=== PATIENT | female | born 1955 | race Caucasian/White ===

== ENCOUNTER → 2019-06-26 08:58 | Outpatient (CLI) | payer OTHER, SELFPAY ==
[2019-06-26 09:58] LABS: Add Manual Diff / Slide Review NO; Basophils Absolute Auto 100 /uL (0-100); Basophils Percent Auto 1.9 % (0-2); Eosinophils Absolute Auto 200 /uL (0-450); Hematocrit 42.1 % (36-46); Hemoglobin 14.7 g/dL (12.0-16.0); Lymphocytes Absolute Auto 1200 /uL (1100-4500); Lymphocytes Percent Auto 32.3 % (25-40); Mean Corpuscular HGB Conc 34.9 % (30-36); Mean Corpuscular Hemoglobin 32.5 PG (26-34); Mean Corpuscular Volume 93.3 fL (80-100); Monocytes Absolute Auto 300 /uL (0-900); Monocytes Percent Auto 9.2 % (3-14); Neutrophils Absolute Auto 1800 /uL (1500-7000); Neutrophils Percent Auto 50.6 % (50-75); Platelet Count 278 X10^3/uL (150-400); Red Blood Cell Count 4.51 X10^6/uL (4.0-5.2); Red Cell Distribution Width 13.8 % (11.6-14.8); White Blood Cell Count 3.6 X10^3/uL (4.5-11.0)
[2019-06-26 10:06] LABS: Alanine Aminotransferase 53 IU/L (<35); Albumin 4.9 g/dL (3.5-5.0); Albumin Globulin Ratio 1.7 (1.0-2.8); Alkaline Phosphatase 107 U/L (38-126); Aspartate Aminotransferase 59 IU/L (14-36); BUN Creatinine Ratio 18.6 (6-22); Bilirubin Total 0.7 mg/dL (0.2-1.3); Blood Urea Nitrogen 13 mg/dL (7-17); Calcium 10.3 mg/dL (8.4-10.2); Carbon Dioxide 29 mmol/L (22-32); Chloride 101 mmol/L (98-107); Cholesterol 227 mg/dL (140-199); Estimated Glomerular Filt Rate > 60.0 mL/min (>60); Globulin 2.9 g/dL (1.7-4.1); Glucose 89 mg/dL (80-110); HEMOLYSIS < 15 (0-50); Potassium 4.2 mmol/L (3.4-5.1); Sodium 138 mmol/L (137-145); Total Protein 7.8 g/dL (6.3-8.2); Triglycerides 54 mg/dL (35-150)
[2019-06-26 10:17] LABS: LDL Cholesterol Calculated 51 mg/dL (<100)
[2019-06-26 10:18] LABS: HDL Cholesterol 165 mg/dL (40-60)
[2019-06-26 10:20] LABS: Vitamin D 25 Hydroxy (D3) 46.5 ng/mL (30.0-100.0)
[2019-06-26 11:11] LABS: TSH w/ Reflex to FT4 3.95 uIU/mL (0.47-4.68)
[2019-07-01 07:55] LABS: ANA Screen, IFA NEGATIVE (NEGATIVE)
== END ==
PROVIDERS: PCP Physician Assistant; Visit Provider Physician Assistant
DX: L65.9 Nonscarring hair loss, unspecified (principal); R03.0 Elevated blood-pressure reading, without diagnosis of hypertension; E78.2 Mixed hyperlipidemia; E55.9 Vitamin D deficiency, unspecified; M35.00 Sjogren syndrome, unspecified; I73.00 Raynaud's syndrome without gangrene; R53.83 Other fatigue
CPT/HCPCS: 36415; 80053; 80061; 82306; 84443; 85025; 86038; 86235

== ENCOUNTER 2020-04-13 16:43 | Emergency (ER) | payer OTHER, SELFPAY ==
[2020-04-13 16:55] VITALS: BP 187/99; PULSE 73; RESP 16; TEMP 36.8; O2SAT 100; BMI 18.8
--- NOTE | 2020-04-13 16:57 | ED.EXTPRO ---
HPI - Extremity Problem <MATTHEW Frias - Last Filed: 04/14/20 00:57> General Chief complaint: Extremity Injury, Upper Stated complaint: Poss lt wrist break Time Seen by Provider: 04/13/20 16:51 Source: patient Mode of arrival: Ambulatory Limitations: no limitations History of Present Illness HPI Narrative: This is a 64 year female, nonsmoker, who presents to ED with significant other with chief complain of dominant hand, left bilateral wrist pain. Patient reports s/p FOOSH during trail run at 1540 today. Patient is able to move fingers and reports intact sensation distally but difficulty with flexion and extension of the wrist and supination and pronation. Patient denies previous injury to affected hand or wrist. Patient denies open skin injuries. He denies hitting her head or injuring other areas. Patient is not on blood thinner. Related Data Previous Rx's Medication Instructions Recorded hydrocodone-acetaminophen [[place]] 1 tab PO TID PRN #10 tab 04/13/20 Allergies Allergy/AdvReac Type Severity Reaction Status Date / Time No Known Allergies Allergy Verified 04/13/20 17:08 Review of Systems <MATTHEW Frias - Last Filed: 04/14/20 00:57> Review of Systems Narrative: General: Denies fever, chills, fatigue, malaise, sweats. HEENT: Denies sinus pain, ear pain, sore throat, difficulty swallowing, dizziness. Respiratory: Denies dyspnea, cough, wheezing, hemoptysis, sputum. Cardiovascular: Denies chest pain, palpitations, orthopnea, edema. Gastrointestinal: Denies nausea, vomiting, abdominal pain, diarrhea, constipation, melena. Musculoskeletal: See HPI Skin: Denies rash, skin lesions, or other. Patient History <MATTHEW Frias - Last Filed: 04/14/20 00:57> Medical History (Updated 04/13/20 @ 18:04 by MATTHEW Frias) No significant past medical history (Acute) Surgical History (Updated 04/13/20 @ 17:00 by MATTHEW Frias) No pertinent past surgical history (Acute) Social History Smoking Status: Never smoker Smoking Status: Never smoker alcohol intake frequency: 0-2 drinks per day Substance Use Type: does not use Exam <MATTHEW Frias - Last Filed: 04/14/20 00:57> Narrative Exam Narrative: General appearance: well developed, well nourished, in no acute distress. Head: normocephalic, atraumatic, no scalp lesions, non-tender. ENT: Hearing grossly intact. Airway patent. Neck/Thyroid: neck supple, full range of motion, no visible masses or meningeal signs. No JVD, non-tender without lymphadenopathy. Skin: no suspicious rashes, lesions over visible areas. Warm and dry and appropriate color for ethnicity. Heart: no clubbing, no cyanosis, no edema. Lungs: Breathing even and unlabored. No stridor. No accessory muscles used. Able to speak in full sentences. Chest: normal shape and expansion. Abdomen: non-obese, non-distended. Neurologic: alert and oriented. Cognitive exam, HAND EMBROIDERER and PNS grossly intact on informal exam. Psych: good eye contact, normal affect. Initial Vital Signs Initial Vital Signs: Vital Signs Temperature 98.2 F 04/13/20 16:55 Pulse Rate 73 04/13/20 16:55 Respiratory Rate 16 04/13/20 16:55 Blood Pressure 187/99 H 04/13/20 16:55 Pulse Oximetry 100 04/13/20 16:55 Extrem Left upper extremity: wrist Details: abnormal to inspection, tenderness Location: of the distal radius and of the distal ulna, swelling (bilateral wrist), abnormal ROM Details: pain with active ROM and pain with passive ROM, normal vascular exam (brisk cap refill) and radial pulse present; no abrasions and no penetrating wound and hand Details: neurosensory exam normal and vascular exam Details: radial pulse present and normal capillary refill; no ecchymosis <Marleny Lockett DO - Last Filed: 04/17/20 07:56> Initial Vital Signs Initial Vital Signs: Vital Signs Temperature 98.2 F 04/13/20 16:55 Pulse Rate 73 04/13/20 16:55 Respiratory Rate 16 04/13/20 16:55 Blood Pressure 187/99 H 04/13/20 16:55 Pulse Oximetry 100 04/13/20 16:55 Procedures <Dung Gonzalez [facility] - Last Filed: 04/14/20 00:57> Orthopedic Splinting/Casting Injury #1: Side: left Upper Extremity Injury Location: wrist Upper Extremity Immobilizer: sling/shoulder immobilizer and sugar tong splint Post splinting neuro exam: intact Post splinting vascular exam: intact Placed by: Nursing Scores <MATTHEW Frias - Last Filed: 04/14/20 00:57> GCS [place] coma scale eye opening: Spontaneous Sunny coma scale verbal response: Orientated Sunny coma scale motor response: Obey commands Sunny coma scale total score: 15 Course <MATTHEW Frias - Last Filed: 04/14/20 00:57> Orders Ordered: Discontinued Medications Acetaminophen (Tylenol) 325 mg PO NOW ONE Stop: 04/13/20 16:57 Last Admin: 04/13/20 17:19 Dose: 325 mg Documented by: PHILIP Hydrocodone Bitart/Acetaminophen ([place] 5/325) 1 tab PO NOW ONE Stop: 04/13/20 16:57 Last Admin: 04/13/20 17:19 Dose: 1 tab Documented by: PHILIP Hydrocodone Bitart/Acetaminophen (Vicodin 5/325 Prepack) 1 bottle MISC SEEINSTR ONE Stop: 04/13/20 17:40 Ibuprofen (Advil) 400 mg PO NOW ONE Stop: 04/13/20 16:57 Last Admin: 04/13/20 17:19 Dose: 400 mg Documented by: PHILIP Consultations Consultation #1: Dr. Purcell consulted and he recommended to a splint and to follow up at the clinic this coming week. Time: 17:31 Vital Signs Vital signs: Vital Signs - 8 hr 04/13/20 16:55 04/13/20 18:32 Temperature 98.2 F Pulse Rate 73 63 Respiratory Rate 16 16 Blood Pressure 187/99 H 173/90 H Pulse Oximetry 100 99 <Marleny Lockett DO - Last Filed: 04/17/20 07:56> Orders Ordered: Discontinued Medications Acetaminophen (Tylenol) 325 mg PO NOW ONE Stop: 04/13/20 16:57 Last Admin: 04/13/20 17:19 Dose: 325 mg Documented by: PHILIP Hydrocodone Bitart/Acetaminophen ([place] 5/325) 1 tab PO NOW ONE Stop: 04/13/20 16:57 Last Admin: 04/13/20 17:19 Dose: 1 tab Documented by: PHILIP Hydrocodone Bitart/Acetaminophen (Vicodin 5/325 Prepack) 1 bottle MISC SEEINSTR ONE Stop: 04/13/20 17:40 Ibuprofen (Advil) 400 mg PO NOW ONE Stop: 04/13/20 16:57 Last Admin: 04/13/20 17:19 Dose: 400 mg Documented by: PHILIP Vital Signs Vital signs: Vital Signs - 8 hr 04/13/20 16:55 04/13/20 18:32 Temperature 98.2 F Pulse Rate 73 63 Respiratory Rate 16 16 Blood Pressure 187/99 H 173/90 H Pulse Oximetry 100 99 MDM - Extremity (Nontraumatic) <MATTHEW Frias - Last Filed: 04/14/20 00:57> Differential Diagnosis Differential diagnosis: Likely other (wrist fracture, wrist sprain) Medical Records Attestation: I reviewed the patient's medical records. Imaging Data XR-Wrist LT: Radiologist's Impression: [address] [address] XRay Report Signed Patient: Lori Vinson R#: [id number] : 6Acct:[id number] Age/Sex: 64 / FDate of Service: 04/13/20 Loc: ED Accession Number: [id number] Procedure: XR wrist LT min 3V Ordering Provider: Dung Gonzalez PROCEDURE: XR WRIST LT MIN 3V INDICATIONS: bilateral wrist pain with deformity, s/p FOOSH TECHNIQUE: 3 views of the wrist were acquired. COMPARISON: None. FINDINGS: Bones: There is a comminuted, displaced fracture of the distal radius. There is likely extension into the radiocarpal joint. No other fracture or dislocation. Soft tissues: No suspicious soft tissue calcifications. IMPRESSION: Comminuted displaced intra-articular distal radial fracture. Dictated by: Perla Ramirez M.D. on 04/13/2020 at 17:08 Approved by: Perla Ramirez M.D. on 04/13/2020 at 17:09 [facility] Narrative Medical decision making narrative: This is a 64 year female who had FOOSH during trail run on left, dominant hand and presents to ED with left distal wrist pain and swelling. Patient has intact sensation, cap refill distally. Patient is able to move all fingers but unable to flex or extend affected wrist due to pain. X-ray test shows indicates comminuted displaced intra-articular distal radial fracture. Dr. Purcell consulted on the phone and he recommended to follow-up at [facility] this coming week. Affected hand was placed on sugar-tong splint and sling provided. Advised RICE therapy and advised to use [id number] Tylenol Motrin for mild and moderate pain and to use [place] for severe pain with narcotic pain medication precautions. Informed the patient to keep acetaminophen use <4000 mg/24 period. Return precautions were discussed and advised to do gentle shoulder exercise several times a day to prevent frozen shoulder while using sling. The patient verbalized understanding in agreement with treatment plan. Discharge Plan Departure Patient Disposition: Home Clinical Impression: Distal radius fracture, left Qualifiers: Encounter type: initial encounter Fracture type: closed Fracture morphology: unspecified fracture morphology Qualified Code(s): S52.502A - Unspecified fracture of the lower end of left radius, initial encounter for closed fracture Discharge Date/Time: 04/13/20 18:40 Instructions: DI for Distal Radius Fracture Activity Restrictions/Additional Instructions: You have been diagnosed with [ distal radial comminuted, displaced fracture of the dominant hand and likely extending to the radiocarpal joint. ]. What to do: *Take your medications as directed. Please use [id number] Tylenol and or Motrin as needed for discomfort. Tylenol 650 mg up to 3 to 4 times a day. Ibuprofen 400-600 mg up to 3 to 4 times a day as needed for pain with food. For severe pain, please take [place] 1 tab as needed and this is a narcotic medication so please take precautions. Please do not drive, drink alcohol, or operate heavy equipments. This can cause constipation as well. Please increase fluid and fiber in her diet and also you can take stool softener. Please this medication have been transmitted to [facility]. *Follow up with your primary care provider in 2-3 days, call for an appointment. Please follow up with [facility] orthopedist by calling on Tuesday. Let them know you were seen in the ED and that we asked you to be seen in follow up. *Return to ED if you have any new, worsening, or concerning symptoms, such as [chest pain, breathing difficulty, unable to tolerate fluids, fever, numbness/tingling/weakness to affected extremity.]. Prescriptions: New hydrocodone-acetaminophen [[place]] 5-325 mg tablet 1 tab PO TID PRN (Reason: pain) Qty: 10 RF: 0 Referrals: [facility] [Provider Group] Nila Jack PA-C [Primary Care Provider] - <Marleny Lockett DO - Last Filed: 04/17/20 07:56> Cosign ED Attending Cosignature Attestation: I was immediately available in the department for consultation. This documentation has been reviewed and I agree with assessment and plan. Supervised by Marleny Lockett DO
[2020-04-13] MEDS: IBUPROFEN 400 MG TABLET PO (17:19)
[2020-04-13] MEDS: HYDROCODONE/ACET 5/325 TABLET 1 TAB PO (17:19)
[2020-04-13] MEDS: ACETAMINOPHEN 325 MG TABLET PO (17:19)
[2020-04-13 18:32] VITALS: BP 173/90; PULSE 63; RESP 16; O2SAT 99
== END 2020-04-13 18:40 | disposition home or self-care (01) ==
PROVIDERS: Emergency Provider Nurse Practitioner Family; PCP Physician Assistant
DX: S52.502A Unspecified fracture of the lower end of left radius, initial encounter for closed fracture (principal); W19.XXXA Unspecified fall, initial encounter
CPT/HCPCS: 73110; 99283; 99284

== ENCOUNTER → 2020-04-25 12:59 | Outpatient (CLI) | payer OTHER, SELFPAY | PROVIDERS: PCP Physician Assistant; Referring Provider Physician Assistant; Visit Provider Physician Assistant | DX: M85.852 Other specified disorders of bone density and structure, left thigh (principal); Z78.0 Asymptomatic menopausal state; Z82.62 Family history of osteoporosis; Z87.891 Personal history of nicotine dependence | CPT/HCPCS: 77080 ==

== ENCOUNTER → 2020-05-16 08:26 | Outpatient (CLI) | payer OTHER, SELFPAY ==
--- NOTE | 2020-05-16 08:27 | DI.MG.S_ITS ---
BILATERAL DIGITAL SCREENING MAMMOGRAM 3D/2D WITH CAD: 05/16/2020 CLINICAL: Routine screening. Comparison is made to exams dated: 05/15/2018 mammogram and 05/10/2016 mammogram - [facility]. The tissue of both breasts is heterogeneously dense. This may lower the sensitivity of mammography. Current study was also evaluated with a Computer Aided Detection (CAD) system. No significant masses, calcifications, or other findings are seen in either breast. There has been no significant interval change. IMPRESSION: NEGATIVE There is no mammographic evidence of malignancy. A 1 year screening mammogram is recommended. This exam was interpreted at Station ID: [id number]. NOTE: For mammograms, a report in lay terms will be sent to the patient. Approximately 15% of breast malignancies will not be visualized mammographically. In the management of a palpable breast mass, a negative mammogram must not discourage biopsy of a clinically suspicious lesion. Electronically Signed By: Emersno álvarez/duong:05/16/2020 09:31:47 letter sent: Normal Exam ACR BI-RADS Category 1: Negative [id number]
== END ==
PROVIDERS: PCP Physician Assistant; Referring Provider Physician Assistant; Visit Provider Physician Assistant
DX: Z12.31 Encounter for screening mammogram for malignant neoplasm of breast (principal)
CPT/HCPCS: 77063; 77067

== ENCOUNTER → 2021-09-04 13:34 | Outpatient (CLI) | payer OTHER, SELFPAY ==
--- NOTE | 2021-09-04 | DI.MG.S_ITS ---
BILATERAL DIGITAL SCREENING MAMMOGRAM 3D/2D WITH CAD: 09/04/2021 CLINICAL: Routine screening. Family history of breast cancer. Comparison is made to exams dated: 05/16/2020 mammogram - [facility], 05/10/2018 mammogram, and 05/10/2016 mammogram - [facility]. The tissue of both breasts is heterogeneously dense. This may lower the sensitivity of mammography. Current study was also evaluated with a Computer Aided Detection (CAD) system. No significant masses, calcifications, or other findings are seen in either breast. There has been no significant interval change. IMPRESSION: NEGATIVE There is no mammographic evidence of malignancy. A 1 year screening mammogram is recommended. This exam was interpreted at Station ID: [id number]. NOTE: For mammograms, a report in lay terms will be sent to the patient. Approximately 15% of breast malignancies will not be visualized mammographically. In the management of a palpable breast mass, a negative mammogram must not discourage biopsy of a clinically suspicious lesion. Electronically Signed By: Brant Maagña acr/duong:09/04/2021 13:58:48 letter sent: Normal Exam ACR BI-RADS Category 1: Negative 3341F
== END ==
PROVIDERS: PCP Physician Assistant; Referring Provider Physician Assistant; Visit Provider Physician Assistant
DX: Z12.31 Encounter for screening mammogram for malignant neoplasm of breast (principal); Z78.0 Asymptomatic menopausal state; Z13.820 Encounter for screening for osteoporosis; Z80.3 Family history of malignant neoplasm of breast; M81.0 Age-related osteoporosis without current pathological fracture
CPT/HCPCS: 77063; 77067; 77080

== ENCOUNTER → 2022-10-18 15:12 | Outpatient (CLI) | payer OTHER, SELFPAY ==
--- NOTE | 2022-10-18 15:20 | DI.DEXA.S_ITS ---
Bone Density Report Name: ERIC JOYA Age: 66 Sex: Female Ethnicity: White Date of : 1955 Indication: osteopenia; Referring Provider: LUCY STUART Study: Bone densitometry was performed. Exam Date: October 18, 2022 Accession number: [id number] Bone Density: Region BMD T-score Z-score Classification AP Spine(L1-L4) 0.823 -2.0 -0.1 Osteopenia Femoral Neck (Left) 0.573 -2.5 -0.9 Osteoporosis Total Hip (Left) 0.681 -2.1 -0.8 Osteopenia Femoral Neck (Right) 0.603 -2.2 -0.6 Osteopenia Total Hip (Right) 0.693 -2.0 -0.7 Osteopenia Total Hip Mean 0.687 -2.1 -0.8 Osteopenia World Health Organization criteria for BMD impression classify patients as: Normal (T-score at or above -1.0), Osteopenia (T-score between -1.0 and -2.5), or Osteoporosis (T-score at or below -2.5). 10-year Fracture Risk: FRAX not reported because: Some T-score for Spine Total or Hip Total or Femoral Neck at or below -2.5 Previous Exams: -- Region Exam Age BMD T-score BMD Change BMD Change Date g/cm2 vs Baseline vs Previous -- AP Spine (L1-L4) 10/18/2022 66 0.823 -2.0 0.008 (0.9%)# 0.008 (0.9%)# 09/04/2021 65 0.816 -2.1 Total Hip(Left) 10/18/2022 66 0.681 -2.1 -0.003 (-0.4%)# -0.003 (-0.4%)# 09/04/2021 65 0.683 -2.1 Total Hip(Right) 10/18/2022 66 0.693 -2.0 0.013 (1.9%)# 0.013 (1.9%)# 09/04/2021 65 0.680 -2.1 -- *Denotes significance at 95% confidence level, LSC for AP Spine = 0.022 g/cm2, LSC for Total Hip = 0.027 g/cm2 # Denotes dissimilar scan types or analysis methods Impression: The patient has osteoporosis, based on the Left Femoral Neck T-score. No significant bone loss was observed. Discussion: INCREASED RISK OF FRACTURE. BONE DENSITY IS UNDESIRABLY LOW AT ONE OR MORE SKELETAL SITES, CONSISTENT WITH POSTMENOPAUSAL OSTEOPOROSIS. This patient's lowest T-score meets the World Health Organization's (WHO) criteria for osteoporosis at one or more sites (T-score -2.5 or below). In untreated patients, the risk of osteoporotic fracture increases approximately two-fold for each 1.0 SD decrease in T-score. Low bone density is not the only risk factor for fracture; also consider factors such as patient's age, frailty or poor health, risk of falling, risk of injury, previous osteoporotic fracture, family history of osteoporosis, cigarette smoking, low body weight, etc. Not everyone with low bone mineral density has osteoporosis; osteomalacia and other metabolic bone disorders should also be considered. Patients who have osteoporosis should be evaluated for specific diseases and conditions (secondary causes) that may cause or contribute to bone loss. The [place] [employer] Endocrinologists (AACE) and National Osteoporosis Foundation (NOF) recommend pharmacologic intervention for all postmenopausal women whose T-score is in this range. The patient should follow a healthful lifestyle (good nutrition with adequate calcium and vitamin D, and appropriate weight-bearing exercise). Follow-Up: Consider a repeat BMD and Vertebral Fracture Assessment (VFA) exam in 2 years or sooner if medically necessary, to reassess this patient's status. Reported by: GLENDY MOSES M.D. on 10/18/2022 3:26:00 PM.
== END ==
PROVIDERS: PCP Physician Assistant; Referring Provider Physician Assistant; Visit Provider Physician Assistant
DX: M81.0 Age-related osteoporosis without current pathological fracture (principal); Z78.0 Asymptomatic menopausal state; Z92.23 Personal history of estrogen therapy
CPT/HCPCS: 77080

== ENCOUNTER → 2023-07-14 16:50 | Outpatient (CLI) | payer OTHER, SELFPAY ==
--- NOTE | 2023-07-14 | DI.MG.S_ITS ---
BILATERAL DIGITAL SCREENING MAMMOGRAM 3D/2D WITH CAD: 07/14/2023 CLINICAL: Routine screening. Routine screening. Family history of breast cancer. Comparison is made to exams dated: 09/04/2021 mammogram, 05/16/2020 mammogram - [facility], and 05/15/2018 mammogram - [facility]. Both breasts are heterogeneously dense, which may obscure small masses (category c / 51-75% glandular tissue). Current study was also evaluated with a Computer Aided Detection (CAD) system. No significant masses, calcifications, or other findings are seen in either breast. There has been no significant interval change. IMPRESSION: NEGATIVE There is no mammographic evidence of malignancy. A 1 year screening mammogram is recommended. Based on the Tyrer Cuzick model (a risk assessment model) the patient's lifetime risk is 7.9% and her 10 year risk is 4.2%. According to the ACR, ACS, and NCCN guidelines, an annual breast MRI exam along with mammogram is recommended if the patient's lifetime risk is 20% or greater. This exam was interpreted at Station ID: [id number]. NOTE: For mammograms, a report in lay terms will be sent to the patient. Approximately 15% of breast malignancies will not be visualized mammographically. In the management of a palpable breast mass, a negative mammogram must not discourage biopsy of a clinically suspicious lesion. Electronically Signed By: Armani larkin/duong:07/15/2023 08:06:47 letter sent: Normal Exam ACR BI-RADS Category 1: Negative 3341F
== END ==
LOC: RAD 16:57 → MAMMO 17:49
PROVIDERS: PCP Internal Medicine; Referring Provider Internal Medicine; Visit Provider Internal Medicine
DX: Z12.31 Encounter for screening mammogram for malignant neoplasm of breast (principal); Z80.3 Family history of malignant neoplasm of breast; R92.333 Mammographic heterogeneous density, bilateral breasts
CPT/HCPCS: 77063; 77067

== ENCOUNTER → 2024-08-23 13:49 | Outpatient (CLI) | payer MEDICARE, SELFPAY ==
--- NOTE | 2024-08-23 13:51 | DI.RAD.S_ITS ---
PROCEDURE: XR DEXA AXIAL SKELETON INDICATIONS: screening COMPARISON: [facility], , XR DEXA AXIAL SKELETON, 10/18/2022, 15:20. FINDINGS: Lumbar Spine: Bone mineral density 0.835 (previously 0.823) g/cm2, T score -1.9 (previously-2.0). Left Femoral Neck: Bone mineral density 0.589 (previously 0.573) g/cm2, T score -2.3 (previously-2.5) Left Hip: Bone mineral density 0.678 (previously 0.681) g/cm2, T score -2.2 (previously-2.1). Fracture Risk Calculation (when applicable): 10-year fracture risk of a major osteoporotic fracture 11 percent and of a hip fracture 2.4 percent. (T score greater or equal to -1.0 to: NORMAL) (T score from -1.1 to -2.4: OSTEOPENIA) (T score less than or equal to -2.5: OSTEOPOROSIS) IMPRESSION: Osteopenia---recommend repeat DEXA in 2-3 years for reassessment. Follow-up guidelines as follows: Osteoporosis: Consider a repeat DEXA and Vertebral Fracture Assessment (VFA) exam in 2 years or sooner if medically necessary, to reassess this patient's status. Osteopenia: Consider a repeat DEXA in 2-3 years to reassess this patient's status, or if there is a new clinical indication. Normal: Consider a repeat DEXA in 5 years or sooner, or if there is a new clinical indication. All treatment decisions require clinical judgment and consideration of individual patient factors, including patient preferences, comorbidities, previous drug use, risk factors not captured in the FRAX model (e.g., frailty, falls, vitamin D deficiency, increased bone turnover, interval significant decline in bone density ) and possible under- or over-estimation of fracture risk by FRAX. In addition, the NOF Guide recommends that FDA-approved medical therapies be considered in postmenopausal women and men age >= 50 years with a: * Hip or vertebral (clinical or morphometric) fracture * T-score of <=-2.5 at the spine or hip * Ten-year fracture probability by FRAX of >= 3% for hip fracture or >=20% for major osteoporotic fracture. Dictated by: Allan Dubois M.D. on 08/25/2024 at 5:59 Approved by: Allan Dubois M.D. on 08/25/2024 at 6:27
--- NOTE | 2024-08-23 14:15 | DI.MG.S_ITS ---
MM screening mammo BI: 08/23/2024. BI-RADS: 1 CLINICAL: 68-year old female for bilateral screening mammogram. Tyrer-Cuzick lifetime risk of 7.4%. No personal or first-degree family history of breast cancer. Current reported family history of breast cancer: maternal aunt. PRIOR EXAMS 07/14/2023, 09/04/2021, 05/16/2020. MAMMOGRAPHY TECHNIQUE: 2D and 3D (tomosynthesis) digital mammographic views obtained, with additional images as needed for full coverage. Current study was also evaluated with a Computer Aided Detection (CAD) system. DENSITY C. The breasts are heterogeneously dense, which may obscure small masses. MAMMOGRAPHY FINDINGS Bilateral: No suspicious mass, asymmetry, microcalcification, or other abnormality seen. No suspicious change on comparison. IMPRESSION: * No evidence of malignancy. RECOMMENDATIONS Bilateral * Annual screening mammography. OVERALL ASSESSMENT CATEGORY BI-RADS-1: Negative. The [employer] recommends annual screening mammography beginning at age 40 for women with average risk of breast cancer. ELECTRONICALLY SIGNED: Emerson Gonzales M.D. on 08/23/2024 at 03:16:00 PM Interpreting Station ID: [id number]
== END ==
PROVIDERS: PCP Internal Medicine; Referring Provider Internal Medicine; Visit Provider Internal Medicine
DX: Z12.31 Encounter for screening mammogram for malignant neoplasm of breast (principal); M81.0 Age-related osteoporosis without current pathological fracture; R92.333 Mammographic heterogeneous density, bilateral breasts
CPT/HCPCS: 77063; 77067; 77080

== ENCOUNTER 2025-04-06 10:28 | Emergency (ER) | payer MEDICARE, SELFPAY ==
[2025-04-06 10:35] VITALS: BP 198/88; PULSE 87; RESP 16; TEMP 37.2; O2SAT 99; BMI 18.8
--- NOTE | 2025-04-06 10:37 | DI.CT.S_ITS ---
PROCEDURE: CT LUMBAR SPINE WO CON INDICATIONS: fall off horse TECHNIQUE: Noncontrast 3 mm thick sections acquired from the T12 level to the sacrum. Sagittal and coronal reformats were constructed. For radiation dose reduction, the following was used: automated exposure control. COMPARISON: None. FINDINGS: Degenerative hypertrophic arthropathy noted in the lower lumbar spine resulting in grade 1 anterior spondylolisthesis L4-5. body height and alignment is otherwise maintained. No evidence of fracture. Degenerative disc disease and arthropathy results in moderate to severe central stenosis at L4-5 Soft tissues: No retroperitoneal masses or hematomas. Visualized aorta is normal in caliber. IMPRESSION: No evidence of fracture or traumatic malalignment. 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 on 04/06/2025 at 11:46
--- NOTE | 2025-04-06 10:37 | DI.CT.S_ITS ---
PROCEDURE: CT PEL WO CON INDICATIONS: fall off horse TECHNIQUE: Noncontrast 3 mm axial sections acquired through the bony pelvis, with coronal and sagittal reformatting. COMPARISON: None. FINDINGS: Sacrum, coccyx and pelvis show appropriate osseous mineralization without evidence of fracture or dislocation. Both hips likewise are unremarkable. No fracture. Soft tissues are normal. No free fluid in the pelvis. IMPRESSION: Unremarkable CT pelvis. No fracture. Dictated by: Simon Silverman M.D. on 04/06/2025 at 11:13 Approved by: Simon Silverman M.D. on 04/06/2025 at 11:15
--- NOTE | 2025-04-06 10:47 | ED.TRAUMA ---
HPI - Trauma General Chief Complaint: Trauma Stated Complaint: bucked from horse and landed on tailbone Time Seen by Provider: 04/06/25 10:37 History of Present Illness HPI narrative: Patient is a healthy 69-year-old female presenting to day with fall from horse. She reports that she was riding her horse 2 days ago when she fell off the horse twice. She reports that the horse got spooked and she fell off. The 1st time she did fall backwards and hit her head she does not think she lost any consciousness she is not on any antiplatelet here anticoagulation medication. She got up got in the horse again next time the horse did on back legs and she fell backwards landing right on her bottom. She is complaining of significant sacral and coccyx pain. Hurts to move hurts to sit. No changes in bowel or bladder habits. Related Data Previous Rx's ?Medication ?Instructions ?Recorded estradiol 0.025 mg/24 hr 1 patch topical 2XW #8 ea 08/13/24 semiweekly transdermal patch progesterone micronized 100 mg 100 mg PO QAM #90 caps 08/13/24 capsule Allergies Allergy/AdvReac Type Severity Reaction Status Date / Time cats Allergy Mild Rash Uncoded 04/06/25 10:41 Patient History Medical History (Updated 04/06/25 @ 12:57 by Roxi Osborne DO) Shoulder pain (~2009) Osteopenia (~2019) ASCUS of cervix with negative high risk HPV Lichen planus No significant past medical history Surgical History (Updated 04/13/20 @ 17:00 by MATTHEW Frias) No pertinent past surgical history Social History household members: spouse Smoking Status: Never smoker alcohol intake: current alcohol intake frequency: 0-2 drinks per day Alcohol type: wine Exam Initial Vital Signs Initial Vital Signs: Vital Signs Temperature 98.9 F 04/06/25 10:35 Pulse Rate 87 04/06/25 10:35 Respiratory Rate 16 04/06/25 10:35 Blood Pressure 198/88 H 04/06/25 10:35 Pulse Oximetry 99 04/06/25 10:35 Oxygen Delivery Method Room Air 04/06/25 10:35 GENERAL: Alert very well-appearing 69-year-old female and in no acute distress. HEENT: Head atraumatic, no contusion depression, EOMI, pupils reactive, face symmetric, moist mucous membranes NECK: No vertebral tenderness full flexion-extension and rotation CARDIOVASCULAR: Regular rate and rhythm without murmurs, rubs or gallops. RESPIRATORY: Breath sounds equal bilaterally, no wheezes rales or rhonchi. ABDOMEN: Soft, nontender. Normoactive bowel sounds all 4 quadrants. No guarding or rebound. BACK: No vertebral tenderness no step-offs, she is tender in her sacral coccyx region EXTREMITIES: Normal range of motion, no clubbing or edema. Neurovascularly intact NEUROLOGICAL: Alert and oriented x4.Normal gait and speech. Cranial nerves II through XII grossly intact. SKIN: Buttock contusion noted bilaterally no significant hematoma right buttock has a small scrape but no significant erythema or fluctuance Course Orders Ordered: ED Orders 04/06/25 10:37 CT lumbar spine wo con Stat CT pelvis wo con Stat Vital Signs Vital signs: Vital Signs - 8 hr 04/06/25 10:35 04/06/25 13:04 Temperature 98.9 F Pulse Rate 87 61 Respiratory Rate 16 18 Blood Pressure 198/88 H 174/80 H Pulse Oximetry 99 99 Oxygen Delivery Method Room Air Room Air MDM - Trauma Imaging Data CT scan - abdomen/pelvis: Radiologist's Impression: PROCEDURE: CT PEL WO CON INDICATIONS: fall off horse TECHNIQUE: Noncontrast 3 mm axial sections acquired through the bony pelvis, with coronal and sagittal reformatting. COMPARISON: None. FINDINGS: Sacrum, coccyx and pelvis show appropriate osseous mineralization without evidence of fracture or dislocation. Both hips likewise are unremarkable. No fracture. Soft tissues are normal. No free fluid in the pelvis. IMPRESSION: Unremarkable CT pelvis. No fracture. Dictated by: Simon Silverman M.D. on 04/06/2025 at 11:13 ct lumbar: Radiologist's Impression: PROCEDURE: CT LUMBAR SPINE WO CON INDICATIONS: fall off horse TECHNIQUE: Noncontrast 3 mm thick sections acquired from the T12 level to the sacrum. Sagittal and coronal reformats were constructed. For radiation dose reduction, the following was used: automated exposure control. COMPARISON: None. FINDINGS: Degenerative hypertrophic arthropathy noted in the lower lumbar spine resulting in grade 1 anterior spondylolisthesis L4-5. body height and alignment is otherwise maintained. No evidence of fracture. Degenerative disc disease and arthropathy results in moderate to severe central stenosis at L4-5 Soft tissues: No retroperitoneal masses or hematomas. Visualized aorta is normal in caliber. IMPRESSION: No evidence of fracture or traumatic malalignment. 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 on 04/06/2025 at 11:46 MDM Narrative Medical decision making narrative: Patient is a per 69-year-old female without medical problems presenting today with buttock and coccyx pain. She fell from her horse twice 2 days ago. Difficult head injury no nausea no vomiting. She is not on antiplatelet or anticoagulation medication. Her spine is nontender really only tender over her buttocks. CT lumbar spine is negative for fracture CT pelvis also shows no fracture Patient is a offered pain medication but declines says that Tylenol and Motrin will be sufficient. Patient is weight-bearing in ambulating in the ED. Discharge Plan Departure Patient Disposition: Home Clinical Impression: Contusion Instructions: Contusion Activity Restrictions/Additional Instructions: *You have been diagnosed with contusion *What to do: Increase activity as tolerated recommend cushioning while sitting may try *Continue to take medications as directed Ibuprofen 600 mg every 6 hours for [id number] pain Tylenol 1000 mg every 6 hours for [id number] pain *Follow up with your primary care provider in 2-3 days or call [phone] *Return to ER if you should have increased pain numbness tingling weakness or any new, worsening or concerning symptoms Prescriptions: No Action estradiol 0.025 mg/24 hr patch semiweekly 1 patch topical 2XW Qty: 8 6RF progesterone micronized 100 mg capsule 100 mg PO QAM Qty: 90 3RF Referrals: Eunice Selby MD [Primary Care Provider, Internal Medicine] Stand Alone Forms: Patient Portal/API
[2025-04-06 13:04] VITALS: BP 174/80; PULSE 61; RESP 18; O2SAT 99
== END 2025-04-06 13:05 | disposition home or self-care (01) ==
PROVIDERS: Emergency Provider Emergency Medicine; PCP Internal Medicine
DX: S30.0XXA Contusion of lower back and pelvis, initial encounter (principal); M54.50 Low back pain, unspecified; V80.010A Animal-rider injured by fall from or being thrown from horse in noncollision accident, initial encounter
CPT/HCPCS: 72131; 72192; 99283; 99284